=== PATIENT | female | born 1955 | race Caucasian/White ===

== ENCOUNTER 2022-09-01 12:58 | Outpatient (OUT) | payer MEDICARE, OTHER, SELFPAY ==
--- NOTE | 2022-09-01 13:13 | XR_ITS ---
The [address] [address] Patient Name: ISHA LI MRN: [id number] date: 1955 Sex: F Assigned Patient Location: [facility] Current Patient Location: [facility] Accession/Order Number: [id number] Exam Date: 09/01/2022 13:13 Report Date: 09/01/2022 15:09 At the request of: JOSE ANGEL ZHAO Procedure: XR foot RAFIQ min 3V EXAMINATION: XR foot RAFIQ min 3V HISTORY: BILATERAL FOOT PAIN COMPARISON: No relevant comparison available. FINDINGS: RIGHT FINDINGS: BONES: No acute fracture or dislocation. Mild degenerative changes. Mild enthesopathic spurring of the calcaneus. SOFT TISSUES: Negative. No visible soft tissue swelling. OTHER: Negative. LEFT FINDINGS: BONES: No acute fracture or dislocation. Mild degenerative changes. Mild enthesopathic spurring of the calcaneus. SOFT TISSUES: Negative. No visible soft tissue swelling. OTHER: Negative. XR/XR foot RAFIQ min 3V IMPRESSION: RIGHT CONCLUSION: Mild degenerative change LEFT CONCLUSION: Mild degenerative change Electronically authenticated by: EKATERINA JENNINGS Date: 09/01/2022 15:09
== END 2022-09-01 12:59 | disposition home or self-care (01) ==
LOC: RAD 12:58
PROVIDERS: Visit Provider Podiatrist Foot & Ankle Surgery
DX: M79.671 Pain in right foot (principal); M79.672 Pain in left foot
CPT/HCPCS: 73630